=== PATIENT | female | born 2000 | race African-American/Black ===

== ENCOUNTER 2023-02-04 09:02 | Emergency (ER) | payer MEDICAID ==
[~2023-02-04] VITALS: Ht 172.7 cm; Wt 82.0 kg
[2023-02-04 09:11] VITALS: RESP 18
[2023-02-04 09:32] VITALS: BP 168/94; PULSE 67; TEMP 98.6; O2SAT 100
[2023-02-04] MEDS ORDERED: MELO-105 MT (11:45)
== END 2023-02-04 11:50 | disposition home or self-care (01) ==
LOC: ER 09:19
DX: S40.012A Contusion of left shoulder, initial encounter (principal); V87.7XXA Person injured in collision between other specified motor vehicles (traffic), initial encounter; Y93.89 Activity, other specified; Y92.89 Other specified places as the place of occurrence of the external cause; Y99.8 Other external cause status
CPT/HCPCS: 73030; 99283

== ENCOUNTER 2023-08-10 21:09 | Emergency (ER) | payer MEDICAID ==
[~2023-08-10] VITALS: Ht 172.7 cm; Wt 94.6 kg
[~2023-08-10 21:09] MED LIST: MELO-105 MT
[2023-08-10 21:36] VITALS: TEMP 98.1; O2SAT 99
[2023-08-10 23:07] LABS: BASOPHILS % 0.7 % (0.0-2.0); EOSINOPHILS % 0.8 % (0.0-5.0); HEMATOCRIT. 26.5 % (36.0-48.0); HEMOGLOBIN. 7.9 g/dL (12.0-16.0); MEAN CORPUSCULAR HEMOGLOBIN 18.2 pg (28.0-32.0); MEAN CORPUSCULAR HGB CONC 29.7 g/dL (31.0-37.0); MEAN CORPUSCULAR VOLUME 61.3 fL (81.0-99.0); MEAN PLATELET VOLUME 9.1 fl (7.4-10.4); MONOCYTES % 7.3 % (2.0-8.0); NEUTROPHILS % 73.2 % (40.0-76.0); PLATELET 552 x1000/uL (130-400); RED BLOOD CELL COUNT 4.32 mill/uL (4.2-5.4); RED CELL DISTRIBUTION WIDTH 30.8 % (11.6-14.6); WHITE BLOOD COUNT 10.7 x1000/uL (4.5-11.0)
[2023-08-10 23:09] LABS: ADD RBC MORPHOLOGY YES; DIFFERENTIAL COMMENT 1
[2023-08-10 23:12] LABS: CHLORIDE 107 mEq/L (98-107); POTASSIUM 3.7 mEq/L (3.5-5.1); SODIUM 137 mEq/L (136-145)
[2023-08-10 23:13] LABS: CALCIUM 9.9 mg/dL (8.7-10.4); CARBON DIOXIDE 24 mEq/L (21-32)
[2023-08-10 23:18] LABS: CREATININE 0.7 mg/dL (0.6-1.0); GLUCOSE 88 mg/dL (70-105); UREA NITROGEN BLOOD < 5 mg/dL (9-23)
[2023-08-10 23:28] LABS: HYPOCHROMASIA 3+; MICROCYTOSIS 3+; PLATELET ESTIMATE INCREASED
[2023-08-10 23:29] LABS: ANISOCYTOSIS 3+; OVALOCYTES 1+
[2023-08-11 00:05] LABS: HCG SCREEN NEGATIVE
[2023-08-11] MEDS ORDERED: FERR324T4 MT (00:37)
[2023-08-11 00:48] VITALS: BP 146/86; PULSE 73; RESP 20
[2023-08-12] MEDS ORDERED: FERR324T4 MT (00:08)
[2023-08-12] MEDS ORDERED: ACET-2708 PO (00:08)
== END 2023-08-11 00:52 | disposition home or self-care (01) ==
LOC: ER 21:09
DX: D64.9 Anemia, unspecified (principal)
CPT/HCPCS: 36415; 80048; 84703; 85025; 86850; 86900; 99283

== ENCOUNTER 2023-08-11 19:10 | Emergency (ER) | payer MEDICAID ==
[~2023-08-11] VITALS: Ht 172.7 cm; Wt 99.5 kg
[~2023-08-11 19:10] MED LIST changes: +FERR324T4 MT
[2023-08-11 19:29] VITALS: TEMP 98.6; O2SAT 100
[2023-08-11 20:58] LABS: BASOPHILS % 0.8 % (0.0-2.0); EOSINOPHILS % 1.2 % (0.0-5.0); HEMATOCRIT. 25.2 % (36.0-48.0); HEMOGLOBIN. 7.7 g/dL (12.0-16.0); LYMPHOCYTES % 21.3 % (20.0-50.0); MEAN CORPUSCULAR HEMOGLOBIN 18.4 pg (28.0-32.0); MEAN CORPUSCULAR HGB CONC 30.4 g/dL (31.0-37.0); MEAN CORPUSCULAR VOLUME 60.5 fL (81.0-99.0); MEAN PLATELET VOLUME 9.1 fl (7.4-10.4); MONOCYTES % 7.8 % (2.0-8.0); NEUTROPHILS % 68.9 % (40.0-76.0); PLATELET 509 x1000/uL (130-400); RED BLOOD CELL COUNT 4.16 mill/uL (4.2-5.4); RED CELL DISTRIBUTION WIDTH 30.8 % (11.6-14.6); WHITE BLOOD COUNT 8.9 x1000/uL (4.5-11.0)
[2023-08-11 21:01] LABS: DIFFERENTIAL COMMENT 1
[2023-08-11 21:14] LABS: CARBON DIOXIDE 26 mEq/L (21-32); CHLORIDE 108 mEq/L (98-107); POTASSIUM 3.7 mEq/L (3.5-5.1); SODIUM 141 mEq/L (136-145)
[2023-08-11 21:15] LABS: CALCIUM 10.1 mg/dL (8.7-10.4)
[2023-08-11 21:20] LABS: CREATININE 0.8 mg/dL (0.6-1.0); GLUCOSE 103 mg/dL (70-105); UREA NITROGEN BLOOD 7 mg/dL (9-23)
[2023-08-11 21:21] LABS: ALANINE AMINOTRANSFERASE 13 IU/L (10-49)
[2023-08-11 21:22] LABS: ALBUMIN 4.8 g/dL (3.2-4.8); ASPARTATE AMINOTRANSFERASE 24 IU/L (<34); BILIRUBIN TOTAL 0.7 mg/dL (0.1-1.0); PROTEIN TOTAL 8.1 g/dL (6.0-8.3)
[2023-08-11 21:24] LABS: ADD RBC MORPHOLOGY YES
[2023-08-12] MEDS ORDERED: ACET-2708 PO (00:08)
[2023-08-12] MEDS ORDERED: FERR324T4 MT (00:08)
[2023-08-12 01:14] VITALS: BP 135/80; PULSE 85; RESP 17
[2023-08-12] MEDS: ACETAMINOPHEN 325MG TABLET PO STA (01:21)
== END 2023-08-12 01:31 | disposition home or self-care (01) ==
LOC: ER 19:10
DX: R42 Dizziness and giddiness (principal); D64.9 Anemia, unspecified; R51.9 Headache, unspecified; N92.0 Excessive and frequent menstruation with regular cycle
CPT/HCPCS: 36415; 80053; 85025; 86850; 86900; 99283

== ENCOUNTER 2023-11-20 00:38 | Emergency (ER) | payer MEDICAID ==
[~2023-11-20] VITALS: Ht 170.2 cm; Wt 100.0 kg
[~2023-11-20 00:38] MED LIST changes: -MELO-105 MT
[2023-11-20 00:53] VITALS: O2SAT 100
[2023-11-20] MEDS: ACETAMINOPHEN 325MG TABLET PO ONE (03:45)
[2023-11-20 03:46] VITALS: BP 144/88; PULSE 66; RESP 14; TEMP 98.3
== END 2023-11-20 03:56 | disposition home or self-care (01) ==
LOC: ER 00:38
DX: R60.0 Localized edema (principal)
CPT/HCPCS: 93970; 99284

== ENCOUNTER 2023-11-21 00:46 | Emergency (ER) | payer MEDICAID ==
[~2023-11-21] VITALS: Ht 167.6 cm; Wt 102.5 kg
[2023-11-21 02:24] LABS: BASOPHILS % 1.1 % (0.0-2.0); EOSINOPHILS % 2.8 % (0.0-5.0); HEMATOCRIT. 30.3 % (36.0-48.0); LYMPHOCYTES % 24.4 % (20.0-50.0); MEAN CORPUSCULAR HGB CONC 29.6 g/dL (31.0-37.0); MEAN CORPUSCULAR VOLUME 60.9 fL (81.0-99.0); MEAN PLATELET VOLUME 9.4 fl (7.4-10.4); MONOCYTES % 7.7 % (2.0-8.0); PLATELET 524 x1000/uL (130-400); RED BLOOD CELL COUNT 4.98 mill/uL (4.2-5.4); RED CELL DISTRIBUTION WIDTH 26.6 % (11.6-14.6); WHITE BLOOD COUNT 9.3 x1000/uL (4.5-11.0)
[2023-11-21 02:25] LABS: ADD RBC MORPHOLOGY YES; DIFFERENTIAL COMMENT 1
[2023-11-21 02:28] LABS: CHLORIDE 106 mEq/L (98-107); POTASSIUM 3.9 mEq/L (3.5-5.1); SODIUM 138 mEq/L (136-145)
[2023-11-21 02:29] LABS: CALCIUM 9.4 mg/dL (8.7-10.4); CARBON DIOXIDE 26 mEq/L (21-32)
[2023-11-21 02:34] LABS: CREATININE 0.6 mg/dL (0.6-1.0); GLUCOSE 120 mg/dL (70-105); UREA NITROGEN BLOOD 7 mg/dL (9-23)
[2023-11-21 02:36] LABS: ALANINE AMINOTRANSFERASE 13 IU/L (10-49); ALBUMIN 4.5 g/dL (3.2-4.8); ASPARTATE AMINOTRANSFERASE 19 IU/L (<34); BILIRUBIN TOTAL 0.4 mg/dL (0.1-1.0)
[2023-11-21 02:55] LABS: PLATELET ESTIMATE INCREASED
[2023-11-21 02:56] LABS: HYPOCHROMASIA 1+; MICROCYTOSIS 1+
[2023-11-21 03:39] VITALS: BP 157/97; PULSE 96; RESP 18; TEMP 98.6
== END 2023-11-21 03:39 | disposition home or self-care (01) ==
LOC: ER 00:46
DX: R60.9 Edema, unspecified (principal); D64.9 Anemia, unspecified
CPT/HCPCS: 36415; 80053; 85025; 99283

== ENCOUNTER 2023-11-26 01:25 | Emergency (ER) | payer MEDICAID ==
[~2023-11-26] VITALS: Ht 172.7 cm; Wt 100.0 kg
[2023-11-26 02:23] VITALS: O2SAT 100
[2023-11-26 04:27] LABS: BASOPHILS % 0.9 % (0.0-2.0); EOSINOPHILS % 3.1 % (0.0-5.0); HEMATOCRIT. 30.2 % (36.0-48.0); LYMPHOCYTES % 19.5 % (20.0-50.0); MEAN CORPUSCULAR HEMOGLOBIN 17.7 pg (28.0-32.0); MEAN CORPUSCULAR HGB CONC 29.7 g/dL (31.0-37.0); MEAN CORPUSCULAR VOLUME 59.7 fL (81.0-99.0); MEAN PLATELET VOLUME 8.9 fl (7.4-10.4); MONOCYTES % 8.6 % (2.0-8.0); NEUTROPHILS % 67.9 % (40.0-76.0); PLATELET 431 x1000/uL (130-400); RED BLOOD CELL COUNT 5.05 mill/uL (4.2-5.4); RED CELL DISTRIBUTION WIDTH 26.8 % (11.6-14.6); WHITE BLOOD COUNT 8.6 x1000/uL (4.5-11.0)
[2023-11-26 04:34] LABS: ADD RBC MORPHOLOGY YES; DIFFERENTIAL COMMENT 1
[2023-11-26 04:39] LABS: CARBON DIOXIDE 29 mEq/L (21-32); CHLORIDE 105 mEq/L (98-107); POTASSIUM 4.3 mEq/L (3.5-5.1); SODIUM 139 mEq/L (136-145)
[2023-11-26 04:40] LABS: CALCIUM 10.1 mg/dL (8.7-10.4)
[2023-11-26 04:45] LABS: CREATININE 0.6 mg/dL (0.6-1.0); GLUCOSE 129 mg/dL (70-105); UREA NITROGEN BLOOD 5 mg/dL (9-23)
[2023-11-26 04:49] LABS: T4 FREE 1.18 ng/dL (0.89-1.76); THYROID STIMULATING HORMONE 2.38 uIU/mL (0.55-4.78)
[2023-11-26 05:18] LABS: HCG SCREEN NEGATIVE
[2023-11-26 05:45] LABS: PLATELET ESTIMATE INCREASED
[2023-11-26 05:46] LABS: HYPOCHROMASIA 2+
[2023-11-26 05:47] VITALS: BP 152/88; PULSE 78; RESP 18; TEMP 98.8; O2SAT 100
[2023-11-26 05:47] LABS: MICROCYTOSIS 2+
[2023-11-26 05:53] LABS: CLARITY URINE CLEAR (CLEAR); COLOR URINE YELLOW (YELLOW); GLUCOSE URINE NEGATIVE (NEGATIVE); KETONES URINE NEGATIVE (NEGATIVE); LEUKOCYTE ESTERASE URINE NEGATIVE (NEGATIVE); NITRITE URINE NEGATIVE (NEGATIVE); OCCULT BLOOD URINE 3+ (NEGATIVE); PH URINE 5.5 (4.5-8.0); PROTEIN URINE TRACE (NEGATIVE); SPECIFIC GRAVITY URINE 1.014 (1.005-1.030); UROBILINOGEN URINE 0.2 E.U./dL (0.2-1.0)
[2023-11-26 07:02] LABS: SQUAMOUS EPITHELIAL CELL URINE FEW /lpf (RARE/1+)
[2023-11-26 07:04] LABS: BACTERIA URINE NONE SEEN; RBC URINE TNTC /hpf (0-2); WBC URINE 0-2 /hpf (0-2)
== END 2023-11-26 05:49 | disposition home or self-care (01) ==
LOC: ER 01:26
DX: R60.9 Edema, unspecified (principal); D64.9 Anemia, unspecified
CPT/HCPCS: 36415; 80048; 81003; 84439; 84443; 84481; 84703; 85025; 93971; 99284

== ENCOUNTER 2023-12-02 02:35 | Emergency (ER) | payer MEDICAID ==
[~2023-12-02] VITALS: Ht 170.2 cm; Wt 102.1 kg
[2023-12-02 02:37] VITALS: PULSE 94; O2SAT 98
[2023-12-02 02:59] VITALS: BP 136/87; RESP 18; TEMP 98.4; O2SAT 85
[2023-12-02 04:07] LABS: HEMATOCRIT 26.7 % (36.0-48.0)
[2023-12-02 04:38] LABS: HCG SCREEN NEGATIVE
== END 2023-12-02 05:03 | disposition home or self-care (01) ==
LOC: ER 03:05
DX: D64.9 Anemia, unspecified (principal)
CPT/HCPCS: 36415; 84703; 85014; 85018; 86850; 86900; 99283

== ENCOUNTER 2023-12-08 02:57 | Emergency (ER) | payer MEDICAID ==
[~2023-12-08] VITALS: Ht 172.7 cm; Wt 103.0 kg
[2023-12-08 03:14] VITALS: O2SAT 100
[2023-12-08 04:39] LABS: BASOPHILS % 0.9 % (0.0-2.0); EOSINOPHILS % 2.3 % (0.0-5.0); HEMATOCRIT. 26.7 % (36.0-48.0); HEMOGLOBIN. 7.9 g/dL (12.0-16.0); MEAN CORPUSCULAR HEMOGLOBIN 17.8 pg (28.0-32.0); MEAN CORPUSCULAR HGB CONC 29.7 g/dL (31.0-37.0); MEAN CORPUSCULAR VOLUME 59.9 fL (81.0-99.0); MEAN PLATELET VOLUME 9.2 fl (7.4-10.4); MONOCYTES % 9.1 % (2.0-8.0); NEUTROPHILS % 68.7 % (40.0-76.0); PLATELET 401 x1000/uL (130-400); RED BLOOD CELL COUNT 4.47 mill/uL (4.2-5.4); WHITE BLOOD COUNT 6.6 x1000/uL (4.5-11.0)
[2023-12-08 04:40] LABS: DIFFERENTIAL COMMENT 1
[2023-12-08 04:53] LABS: CARBON DIOXIDE 25 mEq/L (21-32); CHLORIDE 105 mEq/L (98-107); POTASSIUM 3.8 mEq/L (3.5-5.1); SODIUM 137 mEq/L (136-145)
[2023-12-08 04:54] LABS: CALCIUM 9.6 mg/dL (8.7-10.4)
[2023-12-08 04:59] LABS: CREATININE 0.6 mg/dL (0.6-1.0); GLUCOSE 97 mg/dL (70-105); UREA NITROGEN BLOOD 7 mg/dL (9-23)
[2023-12-08] MEDS ORDERED: MEDR10TA11 MT (07:39)
[2023-12-08 08:08] VITALS: BP 121/88; PULSE 74; RESP 16; TEMP 36.94740; O2SAT 100
== END 2023-12-08 08:29 | disposition home or self-care (01) ==
LOC: ER 02:57
DX: N92.0 Excessive and frequent menstruation with regular cycle (principal)
CPT/HCPCS: 36415; 76856; 80048; 81025; 85025; 86850; 86900; 99284

== ENCOUNTER 2023-12-24 23:35 | Emergency (ER) | payer MEDICAID ==
[~2023-12-24] VITALS: Ht 167.6 cm; Wt 101.2 kg
[~2023-12-24 23:35] MED LIST changes: +MEDR10TA11 MT
[2023-12-24 23:40] VITALS: O2SAT 100
[2023-12-25 00:20] VITALS: BP 113/93; PULSE 90; RESP 14; TEMP 98.6; O2SAT 100
[2023-12-25 01:55] LABS: BASOPHILS % 0.7 % (0.0-2.0); EOSINOPHILS % 1.6 % (0.0-5.0); HEMATOCRIT. 27.4 % (36.0-48.0); HEMOGLOBIN. 8.2 g/dL (12.0-16.0); LYMPHOCYTES % 16.7 % (20.0-50.0); MEAN CORPUSCULAR HGB CONC 29.9 g/dL (31.0-37.0); MEAN CORPUSCULAR VOLUME 63.4 fL (81.0-99.0); MEAN PLATELET VOLUME 9.2 fl (7.4-10.4); MONOCYTES % 7.9 % (2.0-8.0); NEUTROPHILS % 73.1 % (40.0-76.0); PLATELET 291 x1000/uL (130-400); RED BLOOD CELL COUNT 4.33 mill/uL (4.2-5.4); RED CELL DISTRIBUTION WIDTH 26.7 % (11.6-14.6); WHITE BLOOD COUNT 9.7 x1000/uL (4.5-11.0)
[2023-12-25 02:07] LABS: DIFFERENTIAL COMMENT 1
== END 2023-12-25 09:42 | disposition home or self-care (01) ==
LOC: ER 23:35
DX: N93.9 Abnormal uterine and vaginal bleeding, unspecified (principal); D64.9 Anemia, unspecified
CPT/HCPCS: 36415; 76856; 85025; 86850; 86900; 99284

== ENCOUNTER 2024-01-05 01:27 | Emergency (ER) | payer MEDICAID ==
[~2024-01-05] VITALS: Ht 170.2 cm; Wt 99.0 kg
[2024-01-05 01:57] VITALS: O2SAT 100
[2024-01-05 02:00] LABS: BASOPHILS % 0.8 % (0.0-2.0); EOSINOPHILS % 2.6 % (0.0-5.0); HEMATOCRIT. 28.7 % (36.0-48.0); HEMOGLOBIN. 8.7 g/dL (12.0-16.0); MEAN CORPUSCULAR HGB CONC 30.2 g/dL (31.0-37.0); MEAN CORPUSCULAR VOLUME 62.8 fL (81.0-99.0); MEAN PLATELET VOLUME 9.2 fl (7.4-10.4); NEUTROPHILS % 69.6 % (40.0-76.0); PLATELET 399 x1000/uL (130-400); RED BLOOD CELL COUNT 4.57 mill/uL (4.2-5.4); RED CELL DISTRIBUTION WIDTH 25.3 % (11.6-14.6); WHITE BLOOD COUNT 7.2 x1000/uL (4.5-11.0)
[2024-01-05 02:06] LABS: CHLORIDE 106 mEq/L (98-107); POTASSIUM 3.4 mEq/L (3.5-5.1); SODIUM 140 mEq/L (136-145)
[2024-01-05 02:07] LABS: CARBON DIOXIDE 27 mEq/L (21-32)
[2024-01-05 02:12] LABS: CREATININE 0.7 mg/dL (0.6-1.0); GLUCOSE 123 mg/dL (70-105); UREA NITROGEN BLOOD 9 mg/dL (9-23)
[2024-01-05 02:15] LABS: DIFFERENTIAL COMMENT 1
[2024-01-05 02:17] LABS: HCG SCREEN NEGATIVE
[2024-01-05 04:02] VITALS: BP 149/87; PULSE 71; RESP 16; TEMP 36.94740; O2SAT 100
== END 2024-01-05 04:04 | disposition home or self-care (01) ==
LOC: ER 02:29
DX: N93.8 Other specified abnormal uterine and vaginal bleeding (principal)
CPT/HCPCS: 36415; 76856; 80048; 84703; 85025; 86850; 86900; 99284

== ENCOUNTER 2024-01-06 02:32 | Emergency (ER) | payer MEDICAID ==
[~2024-01-06] VITALS: Ht 167.6 cm; Wt 100.0 kg
[2024-01-06 02:55] VITALS: BP 138/87; PULSE 82; TEMP 98.2; O2SAT 100
[2024-01-06 03:23] LABS: BASOPHILS % 0.9 % (0.0-2.0); EOSINOPHILS % 2.5 % (0.0-5.0); HEMATOCRIT. 27.8 % (36.0-48.0); HEMOGLOBIN. 8.3 g/dL (12.0-16.0); LYMPHOCYTES % 18.7 % (20.0-50.0); MEAN CORPUSCULAR HEMOGLOBIN 18.9 pg (28.0-32.0); MEAN CORPUSCULAR HGB CONC 29.7 g/dL (31.0-37.0); MEAN CORPUSCULAR VOLUME 63.5 fL (81.0-99.0); MONOCYTES % 8.9 % (2.0-8.0); PLATELET 432 x1000/uL (130-400); RED BLOOD CELL COUNT 4.38 mill/uL (4.2-5.4); RED CELL DISTRIBUTION WIDTH 24.7 % (11.6-14.6); WHITE BLOOD COUNT 8.6 x1000/uL (4.5-11.0)
[2024-01-06 03:30] LABS: CHLORIDE 107 mEq/L (98-107); POTASSIUM 3.8 mEq/L (3.5-5.1); SODIUM 139 mEq/L (136-145)
[2024-01-06] MEDS: ACETAMINOPHEN 325MG TABLET PO ONE (03:30)
[2024-01-06 03:31] LABS: CALCIUM 9.2 mg/dL (8.7-10.4); CARBON DIOXIDE 26 mEq/L (21-32)
[2024-01-06 03:36] LABS: CREATININE 0.7 mg/dL (0.6-1.0); GLUCOSE 110 mg/dL (70-105); UREA NITROGEN BLOOD 7 mg/dL (9-23)
[2024-01-06 03:38] LABS: ALANINE AMINOTRANSFERASE 12 IU/L (10-49); ALBUMIN 4.4 g/dL (3.2-4.8); ASPARTATE AMINOTRANSFERASE 18 IU/L (<34); BILIRUBIN TOTAL 0.4 mg/dL (0.1-1.0)
[2024-01-06 03:46] LABS: ADD RBC MORPHOLOGY YES; DIFFERENTIAL COMMENT 1
[2024-01-06 04:04] VITALS: RESP 19
[2024-01-06 05:20] LABS: ANISOCYTOSIS 3+; MICROCYTOSIS 2+; PLATELET ESTIMATE INCREASED
[2024-01-06 05:21] LABS: HYPOCHROMASIA 1+
== END 2024-01-06 04:04 | disposition home or self-care (01) ==
LOC: ER 02:42
DX: N93.8 Other specified abnormal uterine and vaginal bleeding (principal)
CPT/HCPCS: 36415; 80053; 85025; 99283

== ENCOUNTER 2024-01-11 03:36 | Emergency (ER) | payer MEDICAID ==
[~2024-01-11] VITALS: Ht 172.7 cm; Wt 100.0 kg
[2024-01-11 03:47] VITALS: TEMP 98.4; O2SAT 100
[2024-01-11 04:34] LABS: BASOPHILS % 0.8 % (0.0-2.0); EOSINOPHILS % 2.3 % (0.0-5.0); HEMATOCRIT. 27.1 % (36.0-48.0); HEMOGLOBIN. 8.1 g/dL (12.0-16.0); LYMPHOCYTES % 21.8 % (20.0-50.0); MEAN CORPUSCULAR HEMOGLOBIN 18.6 pg (28.0-32.0); MEAN CORPUSCULAR HGB CONC 29.9 g/dL (31.0-37.0); MEAN CORPUSCULAR VOLUME 62.3 fL (81.0-99.0); MONOCYTES % 8.5 % (2.0-8.0); NEUTROPHILS % 66.6 % (40.0-76.0); PLATELET 429 x1000/uL (130-400); RED BLOOD CELL COUNT 4.36 mill/uL (4.2-5.4); RED CELL DISTRIBUTION WIDTH 24.4 % (11.6-14.6); WHITE BLOOD COUNT 8.1 x1000/uL (4.5-11.0)
[2024-01-11 04:55] LABS: DIFFERENTIAL COMMENT 1
[2024-01-11 05:09] LABS: CHLORIDE 106 mEq/L (98-107)
[2024-01-11 05:10] LABS: CARBON DIOXIDE 25 mEq/L (21-32); POTASSIUM 3.7 mEq/L (3.5-5.1); SODIUM 138 mEq/L (136-145)
[2024-01-11 05:11] LABS: CALCIUM 8.9 mg/dL (8.7-10.4)
[2024-01-11 05:16] LABS: CREATININE 0.7 mg/dL (0.6-1.0); GLUCOSE 122 mg/dL (70-105); UREA NITROGEN BLOOD 8 mg/dL (9-23)
[2024-01-11 05:42] LABS: HCG SCREEN NEGATIVE
[2024-01-11 06:27] VITALS: BP 139/106; PULSE 81; RESP 18; O2SAT 100
== END 2024-01-11 06:28 | disposition home or self-care (01) ==
LOC: ER 03:36
DX: N93.8 Other specified abnormal uterine and vaginal bleeding (principal); D64.9 Anemia, unspecified
CPT/HCPCS: 36415; 80048; 84703; 85025; 99283

== ENCOUNTER 2024-01-27 01:47 | Emergency (ER) | payer MEDICAID ==
[~2024-01-27] VITALS: Ht 175.3 cm; Wt 100.0 kg
[2024-01-27 02:00] VITALS: BP 161/100; TEMP 98.3; O2SAT 99
[2024-01-27 02:14] VITALS: PULSE 109; RESP 16; O2SAT 98
[2024-01-27] MEDS: ACETAMINOPHEN 325MG TABLET PO ONE (03:00)
[2024-01-27] MEDS ORDERED: FERR325T23 MT (16:10)
== END 2024-01-27 04:45 | disposition home or self-care (01) ==
LOC: ER 01:56
DX: M79.10 Myalgia, unspecified site (principal)
CPT/HCPCS: 99281

== ENCOUNTER 2024-01-27 05:45 | Emergency (ER) | payer MEDICAID ==
[~2024-01-27] VITALS: Ht 175.3 cm; Wt 100.0 kg
[2024-01-27 05:49] VITALS: O2SAT 98
[2024-01-27 06:01] VITALS: BP 152/90; PULSE 100; RESP 18; O2SAT 100
[2024-01-27 10:04] LABS: BASOPHILS % 0.6 % (0.0-2.0); EOSINOPHILS % 1.9 % (0.0-5.0); HEMATOCRIT. 25.3 % (36.0-48.0); HEMOGLOBIN. 7.5 g/dL (12.0-16.0); LYMPHOCYTES % 13.4 % (20.0-50.0); MEAN CORPUSCULAR HEMOGLOBIN 18.1 pg (28.0-32.0); MEAN CORPUSCULAR HGB CONC 29.5 g/dL (31.0-37.0); MEAN CORPUSCULAR VOLUME 61.3 fL (81.0-99.0); MEAN PLATELET VOLUME 9.2 fl (7.4-10.4); MONOCYTES % 11.9 % (2.0-8.0); NEUTROPHILS % 72.2 % (40.0-76.0); PLATELET 341 x1000/uL (130-400); RED BLOOD CELL COUNT 4.12 mill/uL (4.2-5.4); RED CELL DISTRIBUTION WIDTH 21.7 % (11.6-14.6); WHITE BLOOD COUNT 7.7 x1000/uL (4.5-11.0)
[2024-01-27 10:23] LABS: ADD RBC MORPHOLOGY YES; DIFFERENTIAL COMMENT 1
[2024-01-27 11:21] VITALS: TEMP 98
[2024-01-27] MEDS: ACETAMINOPHEN 500MG TABLET PO ONE (11:21)
[2024-01-27 11:33] LABS: HYPOCHROMASIA 2+; MICROCYTOSIS 3+; PLATELET ESTIMATE NORMAL
[2024-01-27 12:41] LABS: CHLORIDE 106 mEq/L (98-107); POTASSIUM 3.8 mEq/L (3.5-5.1); SODIUM 140 mEq/L (136-145)
[2024-01-27 12:42] LABS: CALCIUM 9.1 mg/dL (8.7-10.4); CARBON DIOXIDE 26 mEq/L (21-32)
[2024-01-27 12:47] LABS: CREATININE 0.7 mg/dL (0.6-1.0); GLUCOSE 114 mg/dL (70-105); UREA NITROGEN BLOOD 8 mg/dL (9-23)
[2024-01-27 12:49] LABS: ALANINE AMINOTRANSFERASE 11 IU/L (10-49); ALBUMIN 4.2 g/dL (3.2-4.8); ASPARTATE AMINOTRANSFERASE 14 IU/L (<34); BILIRUBIN DIRECT 0.1 mg/dL (<=3.0)
[2024-01-27 12:50] LABS: BILIRUBIN TOTAL 0.4 mg/dL (0.1-1.0); PROTEIN TOTAL 8.3 g/dL (6.0-8.3)
[2024-01-27 14:22] LABS: CLARITY URINE CLOUDY (CLEAR); COLOR URINE YELLOW (YELLOW); GLUCOSE URINE NEGATIVE (NEGATIVE); KETONES URINE NEGATIVE (NEGATIVE); LEUKOCYTE ESTERASE URINE NEGATIVE (NEGATIVE); NITRITE URINE NEGATIVE (NEGATIVE); OCCULT BLOOD URINE 2+ (NEGATIVE); PH URINE 5.5 (4.5-8.0); PROTEIN URINE TRACE (NEGATIVE); SPECIFIC GRAVITY URINE 1.023 (1.005-1.030)
[2024-01-27 14:43] LABS: BACTERIA URINE 1+; RBC URINE 15-25 /hpf (0-2); SQUAMOUS EPITHELIAL CELL URINE FEW /lpf (RARE/1+); WBC URINE 0-2 /hpf (0-2); YEAST URINE NONE SEEN
[2024-01-27] MEDS ORDERED: FERR325T23 MT (16:10)
[2024-01-27] MEDS: AZITHROMYCIN 500 MG TABLET PO ONE (16:45)
[2024-01-27] MEDS: CEFTRIAXONE SODIUM 500MG VIAL IM ONE (16:51)
== END 2024-01-27 16:55 | disposition home or self-care (01) ==
LOC: ER 05:45
DX: K76.0 Fatty (change of) liver, not elsewhere classified (principal); D64.9 Anemia, unspecified; Z11.3 Encounter for screening for infections with a predominantly sexual mode of transmission
CPT/HCPCS: 80076; 80048; 81003; 81025; 83690; 85025; 36415; 74176; 76705; 96372; 99285; J0696; Z7610

== ENCOUNTER 2024-02-23 02:24 | Emergency (ER) | payer MEDICAID ==
[~2024-02-23] VITALS: Ht 172.7 cm; Wt 104.5 kg
[~2024-02-23 02:24] MED LIST changes: +FERR325T23 MT
[2024-02-23 02:41] VITALS: O2SAT 100
[2024-02-23 03:21] LABS: BASOPHILS % 0.7 % (0.0-2.0); EOSINOPHILS % 3.7 % (0.0-5.0); HEMATOCRIT. 25.3 % (36.0-48.0); HEMOGLOBIN. 7.1 g/dL (12.0-16.0); MEAN CORPUSCULAR HEMOGLOBIN 16.6 pg (28.0-32.0); MEAN CORPUSCULAR HGB CONC 28.2 g/dL (31.0-37.0); MEAN CORPUSCULAR VOLUME 58.7 fL (81.0-99.0); MEAN PLATELET VOLUME 9.4 fl (7.4-10.4); MONOCYTES % 11.5 % (2.0-8.0); NEUTROPHILS % 64.1 % (40.0-76.0); PLATELET 286 x1000/uL (130-400); RED CELL DISTRIBUTION WIDTH 20.4 % (11.6-14.6); WHITE BLOOD COUNT 7.7 x1000/uL (4.5-11.0)
[2024-02-23 03:33] LABS: CHLORIDE 108 mEq/L (98-107); POTASSIUM 3.7 mEq/L (3.5-5.1); SODIUM 140 mEq/L (136-145)
[2024-02-23 03:34] LABS: CARBON DIOXIDE 27 mEq/L (21-32)
[2024-02-23 03:39] LABS: CREATININE 0.7 mg/dL (0.6-1.0); GLUCOSE 112 mg/dL (70-105); UREA NITROGEN BLOOD 8 mg/dL (9-23)
[2024-02-23 03:44] LABS: B-HCG QUANTITATIVE < 1 mIU/mL (<3)
[2024-02-23 03:51] LABS: DIFFERENTIAL COMMENT 1
[2024-02-23 03:52] LABS: ADD RBC MORPHOLOGY YES
[2024-02-23 05:15] VITALS: BP 126/74; PULSE 85; RESP 18; TEMP 36.66960; O2SAT 98
[2024-02-23] MEDS ORDERED: MEDR10TA11 MT (05:15)
[2024-02-23 06:14] LABS: HYPOCHROMASIA 2+; MICROCYTOSIS 2+; PLATELET ESTIMATE NORMAL
[2024-02-23 06:15] LABS: ANISOCYTOSIS 1+
== END 2024-02-23 05:30 | disposition home or self-care (01) ==
LOC: ER 02:24
DX: N92.0 Excessive and frequent menstruation with regular cycle (principal)
CPT/HCPCS: 36415; 76856; 80048; 81025; 84702; 85025; 86850; 86900; 99284

== ENCOUNTER 2024-03-11 08:32 | Emergency (ER) | payer MEDICAID ==
[~2024-03-11] VITALS: Ht 170.2 cm; Wt 100.0 kg
[2024-03-11 08:40] VITALS: O2SAT 100
[2024-03-11] MEDS ORDERED: TETRACAINE 0.5% OPHTH DROPS 4ML RIGHTEYE ONE (09:15)
[2024-03-11] MEDS ORDERED: FLUORESCEIN SODIUM 1MG/STRIP RIGHTEYE ONE (09:15)
[2024-03-11] MEDS ORDERED: AMOX1TAB16 MT (10:38)
[2024-03-11] MEDS ORDERED: OCUFLX RIGHTEYE (10:38)
[2024-03-11 10:57] VITALS: BP 150/90; PULSE 83; RESP 18; TEMP 36.89184; O2SAT 100
== END 2024-03-11 10:59 | disposition home or self-care (01) ==
LOC: ER 08:32
DX: H10.9 Unspecified conjunctivitis (principal); Z79.899 Other long term (current) drug therapy
CPT/HCPCS: 99283

== ENCOUNTER 2024-03-29 03:27 | Emergency (ER) | payer MEDICAID ==
[~2024-03-29] VITALS: Ht 167.6 cm; Wt 85.0 kg
[~2024-03-29 03:27] MED LIST changes: +AMOX1TAB16 MT; +OCUFLX RIGHTEYE
[2024-03-29 03:31] VITALS: TEMP 99.2; O2SAT 100
[2024-03-29 04:02] LABS: BASOPHILS % 0.6 % (0.0-2.0); HEMATOCRIT. 26.6 % (36.0-48.0); HEMOGLOBIN. 7.7 g/dL (12.0-16.0); LYMPHOCYTES % 21.9 % (20.0-50.0); MEAN CORPUSCULAR HEMOGLOBIN 16.2 pg (28.0-32.0); MEAN CORPUSCULAR HGB CONC 29.1 g/dL (31.0-37.0); MEAN CORPUSCULAR VOLUME 55.5 fL (81.0-99.0); MONOCYTES % 8.5 % (2.0-8.0); RED BLOOD CELL COUNT 4.79 mill/uL (4.2-5.4); RED CELL DISTRIBUTION WIDTH 21.1 % (11.6-14.6); WHITE BLOOD COUNT 6.1 x1000/uL (4.5-11.0)
[2024-03-29 04:15] LABS: CHLORIDE 106 mEq/L (98-107); POTASSIUM 3.6 mEq/L (3.5-5.1); SODIUM 138 mEq/L (136-145)
[2024-03-29 04:16] LABS: CARBON DIOXIDE 25 mEq/L (21-32)
[2024-03-29 04:17] LABS: CALCIUM 9.4 mg/dL (8.7-10.4)
[2024-03-29 04:21] LABS: CREATININE 0.8 mg/dL (0.6-1.0); GLUCOSE 103 mg/dL (70-105); UREA NITROGEN BLOOD 7 mg/dL (9-23)
[2024-03-29 04:50] LABS: DIFFERENTIAL COMMENT 1
[2024-03-29 05:29] VITALS: BP 134/88; PULSE 78; RESP 14; O2SAT 99
[2024-03-29 05:43] LABS: PLATELET 243 x1000/uL (130-400)
[2024-03-29 05:44] LABS: MEAN PLATELET VOLUME 9.7 fl (7.4-10.4)
== END 2024-03-29 05:30 | disposition home or self-care (01) ==
LOC: ER 03:27
DX: N92.0 Excessive and frequent menstruation with regular cycle (principal); Z79.899 Other long term (current) drug therapy
CPT/HCPCS: 36415; 80048; 85025; 86850; 86900; 99283

== ENCOUNTER 2024-04-02 02:33 | Emergency (ER) | payer MEDICAID ==
[~2024-04-02] VITALS: Ht 175.3 cm; Wt 100.0 kg
[2024-04-02 02:38] VITALS: O2SAT 100
[2024-04-02 02:49] VITALS: BP 143/75; PULSE 92; RESP 16; TEMP 98; O2SAT 100
[2024-04-02 04:31] LABS: BASOPHILS % 0.7 % (0.0-2.0); HEMATOCRIT. 25.6 % (36.0-48.0); HEMOGLOBIN. 7.4 g/dL (12.0-16.0); LYMPHOCYTES % 17.4 % (20.0-50.0); MEAN CORPUSCULAR HGB CONC 28.7 g/dL (31.0-37.0); MEAN CORPUSCULAR VOLUME 55.7 fL (81.0-99.0); MONOCYTES % 7.6 % (2.0-8.0); NEUTROPHILS % 71.3 % (40.0-76.0); RED CELL DISTRIBUTION WIDTH 21.2 % (11.6-14.6); WHITE BLOOD COUNT 7.1 x1000/uL (4.5-11.0)
[2024-04-02 04:38] LABS: CHLORIDE 107 mEq/L (98-107); SODIUM 139 mEq/L (136-145)
[2024-04-02 04:39] LABS: CALCIUM 9.8 mg/dL (8.7-10.4); CARBON DIOXIDE 25 mEq/L (21-32)
[2024-04-02 04:44] LABS: CREATININE 0.8 mg/dL (0.6-1.0); GLUCOSE 107 mg/dL (70-105); UREA NITROGEN BLOOD 8 mg/dL (9-23)
[2024-04-02 05:17] LABS: DIFFERENTIAL COMMENT 1
[2024-04-02 05:24] LABS: HCG SCREEN NEGATIVE
[2024-04-02 06:02] LABS: MEAN PLATELET VOLUME 9.4 fl (7.4-10.4); PLATELET 254 x1000/uL (130-400)
[2024-04-02 07:06] LABS: CLARITY URINE CLOUDY (CLEAR); COLOR URINE DARK YELLOW (YELLOW)
[2024-04-02 07:07] LABS: GLUCOSE URINE NEGATIVE (NEGATIVE); KETONES URINE TRACE (NEGATIVE); PH URINE 5.5 (4.5-8.0); PROTEIN URINE 1+ (NEGATIVE); SPECIFIC GRAVITY URINE 1.031 (1.005-1.030)
[2024-04-02 07:08] LABS: LEUKOCYTE ESTERASE URINE TRACE (NEGATIVE); NITRITE URINE NEGATIVE (NEGATIVE); OCCULT BLOOD URINE 3+ (NEGATIVE)
[2024-04-02 07:56] LABS: RBC URINE 50-100 /hpf (0-2); SQUAMOUS EPITHELIAL CELL URINE FEW /lpf (RARE/1+); WBC URINE 0-2 /hpf (0-2)
[2024-04-02 07:57] LABS: BACTERIA URINE NONE SEEN
== END 2024-04-02 08:05 | disposition home or self-care (01) ==
LOC: ER 02:42
DX: N94.6 Dysmenorrhea, unspecified (principal); Z79.899 Other long term (current) drug therapy
CPT/HCPCS: 36415; 80048; 81003; 84703; 85025; 86850; 86900; 99283

== ENCOUNTER 2024-04-04 02:36 | Emergency (ER) | payer MEDICAID ==
[~2024-04-04] VITALS: Ht 172.7 cm; Wt 99.0 kg
[2024-04-04 02:42] VITALS: O2SAT 99
[2024-04-04 04:17] LABS: BASOPHILS % 1.6 % (0.0-2.0); EOSINOPHILS % 4.2 % (0.0-5.0); HEMATOCRIT. 24.5 % (36.0-48.0); HEMOGLOBIN. 7.1 g/dL (12.0-16.0); LYMPHOCYTES % 21.1 % (20.0-50.0); MEAN CORPUSCULAR HEMOGLOBIN 16.2 pg (28.0-32.0); MEAN CORPUSCULAR HGB CONC 28.9 g/dL (31.0-37.0); MEAN PLATELET VOLUME 8.9 fl (7.4-10.4); MONOCYTES % 8.9 % (2.0-8.0); NEUTROPHILS % 64.2 % (40.0-76.0); PLATELET 284 x1000/uL (130-400); RED BLOOD CELL COUNT 4.37 mill/uL (4.2-5.4); RED CELL DISTRIBUTION WIDTH 21.3 % (11.6-14.6); WHITE BLOOD COUNT 7.3 x1000/uL (4.5-11.0)
[2024-04-04 04:20] LABS: DIFFERENTIAL COMMENT 1
[2024-04-04 05:28] LABS: HCG SCREEN NEGATIVE
[2024-04-04 07:02] VITALS: BP 116/63; PULSE 89; RESP 17; TEMP 36.66960; O2SAT 99
== END 2024-04-04 07:05 | disposition home or self-care (01) ==
LOC: ER 02:44
DX: N93.8 Other specified abnormal uterine and vaginal bleeding (principal)
CPT/HCPCS: 36415; 81025; 84703; 85025; 86850; 86900; 99283

== ENCOUNTER 2024-05-07 01:25 | Emergency (ER) | payer MEDICAID ==
[~2024-05-07] VITALS: Ht 167.6 cm; Wt 103.8 kg
[2024-05-07 01:33] VITALS: BP 136/75; RESP 13; TEMP 37.2; O2SAT 100
[2024-05-07 01:34] VITALS: PULSE 112; O2SAT 100
[2024-05-07 04:25] LABS: BASOPHILS % 1.1 % (0.0-2.0); EOSINOPHILS % 3.6 % (0.0-5.0); HEMATOCRIT. 25.5 % (36.0-48.0); HEMOGLOBIN. 7.1 g/dL (12.0-16.0); LYMPHOCYTES % 26.3 % (20.0-50.0); MEAN CORPUSCULAR HEMOGLOBIN 15.5 pg (28.0-32.0); MEAN CORPUSCULAR HGB CONC 27.9 g/dL (31.0-37.0); MEAN CORPUSCULAR VOLUME 55.6 fL (81.0-99.0); MEAN PLATELET VOLUME 9.8 fl (7.4-10.4); PLATELET 392 x1000/uL (130-400); RED BLOOD CELL COUNT 4.59 mill/uL (4.2-5.4); RED CELL DISTRIBUTION WIDTH 21.8 % (11.6-14.6); WHITE BLOOD COUNT 6.8 x1000/uL (4.5-11.0)
[2024-05-07 04:31] LABS: DIFFERENTIAL COMMENT 1
[2024-05-07 04:32] LABS: ADD RBC MORPHOLOGY YES
[2024-05-07 04:35] LABS: CHLORIDE 109 mEq/L (98-107); POTASSIUM 3.6 mEq/L (3.5-5.1); SODIUM 141 mEq/L (136-145)
[2024-05-07 04:36] LABS: CARBON DIOXIDE 24 mEq/L (21-32)
[2024-05-07 04:37] LABS: CALCIUM 9.3 mg/dL (8.7-10.4)
[2024-05-07 04:41] LABS: CREATININE 0.7 mg/dL (0.6-1.0); GLUCOSE 127 mg/dL (70-105)
[2024-05-07 04:42] LABS: UREA NITROGEN BLOOD 9 mg/dL (9-23)
[2024-05-07 06:06] LABS: ANISOCYTOSIS 3+; MICROCYTOSIS 3+
[2024-05-07 06:07] LABS: HYPOCHROMASIA 3+
[2024-05-07 06:08] LABS: PLATELET ESTIMATE INCREASED
== END 2024-05-07 07:57 | disposition home or self-care (01) ==
LOC: ER 01:34
DX: D64.9 Anemia, unspecified (principal); Z79.899 Other long term (current) drug therapy
CPT/HCPCS: 36415; 80048; 85025; 99283

== ENCOUNTER 2024-06-17 02:22 | Emergency (ER) | payer MEDICAID ==
[~2024-06-17] VITALS: Ht 175.3 cm; Wt 100.0 kg
[~2024-06-17 02:22] MED LIST changes: -AMOX1TAB16 MT; -FERR324T4 MT; -MEDR10TA11 MT; -OCUFLX RIGHTEYE
[2024-06-17 02:36] VITALS: O2SAT 100
[2024-06-17 02:39] VITALS: TEMP 36.7; O2SAT 100
[2024-06-17 04:00] LABS: HEMATOCRIT. 26.7 % (36.0-48.0); HEMOGLOBIN. 7.5 g/dL (12.0-16.0); NEUTROPHILS % 75.1 % (40.0-76.0); WHITE BLOOD COUNT 10.2 x1000/uL (4.5-11.0)
[2024-06-17 04:09] LABS: BASOPHILS % 1.3 % (0.0-2.0); EOSINOPHILS % 3.7 % (0.0-5.0); LYMPHOCYTES % 14.3 % (20.0-50.0); MEAN CORPUSCULAR HEMOGLOBIN 16.4 pg (28.0-32.0); MEAN CORPUSCULAR HGB CONC 28.1 g/dL (31.0-37.0); MEAN CORPUSCULAR VOLUME 58.4 fL (81.0-99.0); MONOCYTES % 5.6 % (2.0-8.0); RED BLOOD CELL COUNT 4.58 mill/uL (4.2-5.4); RED CELL DISTRIBUTION WIDTH 25.2 % (11.6-14.6)
[2024-06-17 04:13] VITALS: BP 131/66; PULSE 90; RESP 18
[2024-06-17] MEDS: KETOROLAC 15MG/ML VIAL IM ONE (04:13)
[2024-06-17 04:14] LABS: CHLORIDE 106 mEq/L (98-107); POTASSIUM 3.7 mEq/L (3.5-5.1); SODIUM 139 mEq/L (136-145)
[2024-06-17] MEDS: METOCLOPRAMIDE HCL 10MG TABLET PO ONE (04:14)
[2024-06-17 04:15] LABS: CALCIUM 9.2 mg/dL (8.7-10.4); CARBON DIOXIDE 22 mEq/L (21-32)
[2024-06-17 04:20] LABS: CREATININE 0.6 mg/dL (0.6-1.0); GLUCOSE 103 mg/dL (70-105); UREA NITROGEN BLOOD 10 mg/dL (9-23)
[2024-06-17 04:21] LABS: DIFFERENTIAL COMMENT 1
[2024-06-17 07:17] LABS: PLATELET 352 x1000/uL (130-400)
[2024-06-17 07:18] LABS: MEAN PLATELET VOLUME 9.4 fl (7.4-10.4)
== END 2024-06-17 05:00 | disposition home or self-care (01) ==
LOC: ER 02:22
DX: D64.9 Anemia, unspecified (principal); Z79.899 Other long term (current) drug therapy
CPT/HCPCS: 99283; 80048; 85025; 36415; J1885; J8597

== ENCOUNTER 2024-07-21 15:07 | Emergency (ER) | payer MEDICAID ==
[~2024-07-21] VITALS: Ht 170.2 cm; Wt 85.0 kg
[2024-07-21 15:10] VITALS: O2SAT 100
[2024-07-21 15:12] VITALS: BP 148/68; PULSE 93; RESP 16; TEMP 36.7; O2SAT 99
[2024-07-21] MEDS ORDERED: IBUP-2029 MT (18:21)
[2024-07-21] MEDS: IBUPROFEN 600MG TABLET PO ONE (18:30)
[2024-07-22] MEDS ORDERED: NAPR-1176 MT (03:50)
== END 2024-07-21 18:46 | disposition home or self-care (01) ==
LOC: ER 15:07
DX: S00.03XA Contusion of scalp, initial encounter (principal); R22.9 Localized swelling, mass and lump, unspecified; Z79.01 Long term (current) use of anticoagulants; Z79.899 Other long term (current) drug therapy; X58.XXXA Exposure to other specified factors, initial encounter; Y93.89 Activity, other specified; Y92.89 Other specified places as the place of occurrence of the external cause; Y99.8 Other external cause status
CPT/HCPCS: 81025; 99284

== ENCOUNTER 2024-07-22 01:22 | Emergency (ER) | payer MEDICAID ==
[~2024-07-22] VITALS: Ht 172.7 cm; Wt 98.2 kg
[~2024-07-22 01:22] MED LIST changes: +IBUP-2029 MT
[2024-07-22 01:27] VITALS: O2SAT 100
[2024-07-22 01:49] VITALS: TEMP 36.8; O2SAT 99
[2024-07-22 02:45] VITALS: BP 150/91; PULSE 71; RESP 16
[2024-07-22] MEDS: KETOROLAC 15MG/ML VIAL IM ONE (02:45)
[2024-07-22] MEDS ORDERED: NAPR-1176 MT (03:50)
== END 2024-07-22 04:16 | disposition home or self-care (01) ==
LOC: ER 01:22
DX: R51.9 Headache, unspecified (principal); Z79.1 Long term (current) use of non-steroidal anti-inflammatories (NSAID); Z79.899 Other long term (current) drug therapy
CPT/HCPCS: 96372; 99283; J1885; Z7610

== ENCOUNTER 2024-07-27 03:21 | Emergency (ER) | payer MEDICAID ==
[~2024-07-27] VITALS: Ht 170.2 cm; Wt 105.6 kg
[~2024-07-27 03:21] MED LIST changes: +NAPR-1176 MT
[2024-07-27 03:28] VITALS: O2SAT 100
[2024-07-27 04:21] LABS: BASOPHILS % 0.6 % (0.0-2.0); EOSINOPHILS % 2.4 % (0.0-5.0); HEMATOCRIT. 28.2 % (36.0-48.0); HEMOGLOBIN. 8.2 g/dL (12.0-16.0); LYMPHOCYTES % 17.5 % (20.0-50.0); MEAN CORPUSCULAR HEMOGLOBIN 17.4 pg (28.0-32.0); MEAN CORPUSCULAR HGB CONC 29.2 g/dL (31.0-37.0); MEAN CORPUSCULAR VOLUME 59.4 fL (81.0-99.0); MONOCYTES % 8.6 % (2.0-8.0); NEUTROPHILS % 70.9 % (40.0-76.0); RED BLOOD CELL COUNT 4.74 mill/uL (4.2-5.4); RED CELL DISTRIBUTION WIDTH 28.9 % (11.6-14.6); WHITE BLOOD COUNT 9.5 x1000/uL (4.5-11.0)
[2024-07-27 04:29] LABS: CHLORIDE 109 mEq/L (98-107); POTASSIUM 3.7 mEq/L (3.5-5.1); SODIUM 139 mEq/L (136-145)
[2024-07-27 04:30] LABS: CARBON DIOXIDE 23 mEq/L (21-32)
[2024-07-27 04:31] LABS: CALCIUM 9.2 mg/dL (8.7-10.4)
[2024-07-27 04:36] LABS: CREATININE 0.6 mg/dL (0.6-1.0); DIFFERENTIAL COMMENT 1; GLUCOSE 99 mg/dL (70-105); UREA NITROGEN BLOOD 8 mg/dL (9-23)
[2024-07-27 04:37] LABS: ADD RBC MORPHOLOGY YES
[2024-07-27 06:11] LABS: MEAN PLATELET VOLUME 9.3 fl (7.4-10.4); PLATELET 281 x1000/uL (130-400); PLATELET ESTIMATE NORMAL
[2024-07-27 06:12] LABS: ANISOCYTOSIS 1+; HYPOCHROMASIA 1+
[2024-07-27 06:14] LABS: MICROCYTOSIS 2+
[2024-07-27] MEDS: ONDANSETRON HCL 4MG TABLET PO ONE (06:23)
[2024-07-27 06:46] LABS: CLARITY URINE CLEAR (CLEAR); COLOR URINE YELLOW (YELLOW); GLUCOSE URINE NEGATIVE (NEGATIVE); KETONES URINE NEGATIVE (NEGATIVE); LEUKOCYTE ESTERASE URINE NEGATIVE (NEGATIVE); NITRITE URINE NEGATIVE (NEGATIVE); OCCULT BLOOD URINE 3+ (NEGATIVE); PROTEIN URINE NEGATIVE (NEGATIVE); SPECIFIC GRAVITY URINE 1.029 (1.005-1.030)
[2024-07-27 07:08] LABS: SQUAMOUS EPITHELIAL CELL URINE FEW /lpf (RARE/1+)
[2024-07-27 07:10] LABS: WBC URINE 0-2 /hpf (0-2)
[2024-07-27 07:11] LABS: BACTERIA URINE NONE SEEN
[2024-07-27] MEDS ORDERED: ONDA4TAB50 MT (07:20)
[2024-07-27 07:29] VITALS: BP 130/71; PULSE 69; RESP 18; TEMP 36.7; O2SAT 100
== END 2024-07-27 07:43 | disposition home or self-care (01) ==
LOC: ER 03:21
DX: R19.7 Diarrhea, unspecified (principal); R11.10 Vomiting, unspecified; Z79.1 Long term (current) use of non-steroidal anti-inflammatories (NSAID); F10.90 Alcohol use, unspecified, uncomplicated; Y90.9 Presence of alcohol in blood, level not specified
CPT/HCPCS: 99283; 80048; 81003; 81025; 83690; 85025; 86850; 86900; 86901; 36415; Q0162